=== PATIENT | male | born 1990 | race Two or more races ===

== ENCOUNTER 2024-02-02 18:35 | Emergency (ER) | payer OTHER ==
[~2024-02-02] VITALS: Ht 330.2 cm; Wt 127.0 kg
[2024-02-02] MEDS ORDERED: KETOROLAC TROMETHAMINE 30 MG VIAL IM STA (21:04)
[2024-02-02] MEDS ORDERED: ORPHENADRINE CITRATE 30 MG/ML AMPUL IM STA (21:04)
[2024-02-02] MEDS ORDERED: ORPHENADRINE CITRATE 30 MG/ML AMPUL ONE (21:08)
[2024-02-02] MEDS ORDERED: KETOROLAC TROMETHAMINE 30 MG VIAL ONE (21:09)
== END 2024-02-02 22:56 | disposition home or self-care (01) ==
LOC: ER 18:35
DX: M75.32 Calcific tendinitis of left shoulder (principal)